=== PATIENT | female | born 1965 | race Hispanic/Latino ===

== ENCOUNTER 2017-04-03 16:22 | Observation (INO) | payer MEDICAID, MEDICARE ==
[2017-04-03 16:37] VITALS: RESP 18
--- NOTE | 2017-04-03 17:08 | C.PDOC ---
History Of Present Illness <LoraRoselyn A - Last Filed: 04/03/17 18:27> <Patito Palmer - Last Filed: 04/03/17 22:18> 51 y/o female presents to ED with multiple complaints including fast heartbeat, dizziness, anxious and suicidal thoughts. At bedside patient is on her cellphone and is not answering questions. No others complaints at this time. ( Roselyn Paulino) History Per: Patient History/Exam Limitations: no limitations Onset/Duration Of Symptoms: Days Current Symptoms Are (Timing): Still Present Suicide/Self Injury Attempted (Context): None Modifying Factor(s): None <Roselyn Paulino - Last Filed: 04/03/17 18:27> <Patito Palmer - Last Filed: 04/03/17 22:18> Time Seen by Provider: 04/03/17 16:46 Chief Complaint (Nursing): Dizziness/Lightheaded Past Medical History Reviewed: Historical Data, Nursing Documentation, Vital Signs - Medical History PMH: Arthritis, Bipolar Disorder Surgical History: No Surg Hx Family History: States: No Known Family Hx - Social History Hx Tobacco Use: No Hx Alcohol Use: No Hx Substance Use: No - Immunization History Hx Tetanus Toxoid Vaccination: No Hx Influenza Vaccination: No Hx Pneumococcal Vaccination: No <LoraRoselyn A - Last Filed: 04/03/17 18:27> Vital Signs: Last Vital Signs Temp 98.1 F 04/03/17 19:15 Pulse 78 04/03/17 19:15 Resp 18 04/03/17 19:15 BP 107/70 04/03/17 19:15 Pulse Ox 99 04/03/17 19:15 - [facility] Procedures OTHER LOCAL DESTRUC SKIN (04/30/02) Review Of Systems Cardiovascular: Positive for: Light Headedness Respiratory: Positive for: Shortness of Breath Psych: Positive for: Anxiety <Roselyn Paulino Last Filed: 04/03/17 18:27> Physical Exam - Physical Exam Appears: Non-toxic, Other (Anxious) Skin: Normal Color, Warm, Dry, No Rash Head: Atraumatic, Normacephalic Eye(s): bilateral: Normal Inspection Oral Mucosa: Moist Neck: Normal ROM, Supple Chest: Symmetrical Cardiovascular: Rhythm Regular, No Murmur Respiratory: Normal Breath Sounds, No Rales, No Rhonchi, No Wheezing Gastrointestinal/Abdominal: Soft, No Tenderness, No Guarding, No Rebound Extremity: Normal ROM, Capillary Refill (<2 seconds) Neurological/Psych: Oriented x3 <Roselyn Paulino - Last Filed: 04/03/17 18:27> ED Course And Treatment - Laboratory Results Result Diagrams: 04/03/17 17:20 04/03/17 17:20 Lab Interpretation: Normal ECG: Interpreted By Sc ECG Rhythm: Sinus Rhythm ECG Interpretation: Normal Rate From EC O2 Sat by Pulse Oximetry: 100 (RA) Pulse Ox Interpretation: Normal Progress Note: Case discussed and patient evaluated by crisis department. on 1: 1 for SI. Patient refused chest X-ray Reassessment Condition: Unchanged <Roselyn Paulino - Last Filed: 04/03/17 18:27> - Laboratory Results Result Diagrams: 04/03/17 17:20 04/03/17 17:20 <Patito Palmer - Last Filed: 04/03/17 22:18> Medical Decision Making <Roselyn Paulino - Last Filed: 04/03/17 18:27> <Patito Palmer - Last Filed: 04/03/17 22:18> Medical Decision Making: Plan: * Patient will be on a 1:1 * Crisis evaluation (Roselyn Paulino) Patient is medically cleared for psychiatric admission. (Patito Palmer) ED OBSERVATION <Roselyn Paulino - Last Filed: 04/03/17 18:27> <Patito Palmer - Last Filed: 04/03/17 22:18> - Observation admission statement Patient is being placed in observation because:: pending crisis (Roselyn Paulino) - Goals of Observation Goals of observation are:: crisis evaluation (Roselyn Paulino) - Progress Note Progress Note: 04/03/17 21:44 Patient remains cooperative in ED. She is refusing CXR stating that she has no respiratory complaints and does not want to be exposed to radiation. She denies any cough, chest pain or shortness of breath or fever. (Patito Palmer) Disposition - Disposition Disposition Time: 19:00 <Roselyn Paulino - Last Filed: 04/03/17 18:27> Discussed With : Bret Acosta Comment: Patient accepted for transfer to [facility] - Disposition Disposition Time: 22:17 <Patito Palmer - Last Filed: 04/03/17 22:18> - Disposition Disposition: Trans to Other Acute Care Hosp Condition: STABLE - Clinical Impression Clinical Impression: Bipolar 1 disorder, Suicidal ideation - PA / [employer]IST[employer] ATTORNEY / Resident Statement MD/DO has reviewed & agrees with the documentation as recorded. - Scribe Statement The provider has reviewed the documentation as recorded by the Scribe <Roselyn Paulino - Last Filed: 04/03/17 18:27> <Patito Palmer - Last Filed: 04/03/17 22:18> - Scribe Statement Phillip Clay All medical record entries made by the Scribe were at my direction and personally dictated by me. I have reviewed the chart and agree that the record accurately reflects my personal performance of the history, physical exam, medical decision making, and the department course for this patient. I have also personally directed, reviewed, and agree with the discharge instructions and disposition. (Roselyn Paulino) Physician Patient Turnover Patient Signed Over To: Patito Palmer Handoff Comments: pending crisis <Roselyn Paulino - Last Filed: 04/03/17 18:27>
[2017-04-03 17:26] LABS: URINE BILIRUBIN NEGATIVE (NEGATIVE); URINE BLOOD NEGATIVE (NEGATIVE); URINE COLOR Yellow (YELLOW); URINE GLUCOSE (UA) NORMAL (Normal); URINE KETONE NEGATIVE (NEGATIVE); URINE LEUKOCYTE ESTERASE NEG Leu/uL (Negative); URINE PROTEIN NEGATIVE (NEGATIVE); URINE UROBILINOGEN NORMAL mg/dL (0.2-1.0); WBC URINE < 1 /hpf (0-5)
[2017-04-03 17:33] LABS: CHLORIDE 103 mmol/L (98-107)
[2017-04-03 17:34] LABS: POTASSIUM 3.9 mmol/L (3.6-5.2); SODIUM 140 mmol/L (132-148)
[2017-04-03 17:35] LABS: GFR AFRICAN-AMERICAN > 60
[2017-04-03 17:36] LABS: ALB/GLOB RATIO 1.2 (1.0-2.1); ALKALINE PHOSPHATASE 83 U/L (38-126); ALT/SGPT 26 U/L (9-52); AST/SGOT 21 U/L (14-36); BASO % 0.4 % (0.0-2.0); BILIRUBIN,TOTAL 0.7 mg/dL (0.2-1.3); BLOOD UREA NITROGEN 9 mg/dL (7-17); CARBON DIOXIDE 25 mmol/L (22-30); EOS % 0.1 % (0.0-4.0); GLUCOSE,RANDOM 91 mg/dL (65-105); HEMATOCRIT 41.8 % (34.0-47.0); LYMPH % 21.4 % (20.0-40.0); MEAN CELL VOLUME 92.6 fL (81.0-99.0); MEAN CORPUSCULAR HEMOGLOBIN 31.7 pg (27.0-31.0); MEAN CORPUSCULAR HGB CONC 34.2 g/dL (33.0-37.0); MONO # 0.6 K/uL (0.0-0.8); MONO % 11.4 % (0.0-10.0); NRBC % 0.1 % (0.0-2.0); RED CELL DISTRIBUTION WIDTH 13.3 % (11.5-14.5); TOTAL PROTEIN 7.8 g/dL (6.3-8.3); WHITE BLOOD COUNT 4.9 K/uL (4.8-10.8)
[2017-04-03 17:37] LABS: ALCOHOL SERUM < 10 mg/dl (0-10); CALCIUM 9.6 mg/dl (8.6-10.4)
[2017-04-03 22:44] VITALS: TEMP 98.5
[2017-04-04 01:54] VITALS: BP 106/68; PULSE 76; O2SAT 97
== END 2017-04-03 22:19 | disposition home or self-care (01) ==
LOC: C.ER 16:22 → C.9OBSV 18:23
PROVIDERS: ADMIT Emergency Medicine; ATTEND Emergency Medicine
DX: F31.9 Bipolar disorder, unspecified (principal); R45.851 Suicidal ideations
CPT/HCPCS: 80053; 81001; 85025; G0378; G0480

== ENCOUNTER 2018-06-07 19:25 | Emergency (ER) | payer MEDICARE ==
[2018-06-07] MEDS ORDERED: Sodium Chloride 0.9% 500 ML IV ONE (20:19)
--- NOTE | 2018-06-07 20:41 | C.PDOC ---
History Of Present Illness 52 year old female with PMH Bipolar disorder not on any medications presents to ED with complaints of feeling body pulsating, having trouble taking deep breaths, numbness and tingling to hands and feet, tired and run down, decreased appetite, and having memory problems. She reports feeling "unconscious like in a dream, and my head is in a fog". She states she has been having many problems this year, has been living with a friend. Over the iday she may have consumed foods that may have contained dairy and wheat, which she has allergy to but does not feel itchy. Denies any drug or alcohol use. Time Seen by Provider: 06/07/18 19:49 Chief Complaint (Nursing): Medical Clearance History Per: Patient History/Exam Limitations: no limitations Onset/Duration Of Symptoms: Days Past Medical History Reviewed: Historical Data, Nursing Documentation, Vital Signs Vital Signs: Last Vital Signs Temp 98.3 F 06/07/18 19:27 Pulse 96 H 06/07/18 19:27 Resp 20 06/07/18 19:27 BP 109/72 06/07/18 19:27 Pulse Ox 100 06/07/18 19:27 - Medical History PMH: Arthritis, Bipolar Disorder - [facility] Procedures GROUP PSYCHOTHERAPY (04/04/17) INDIVIDUAL PSYCHOTHERAPY, BEHAVIORAL (04/04/17) OTHER LOCAL DESTRUC SKIN (04/30/02) Family History: States: Unknown Family Hx - Social History Hx Tobacco Use: No Hx Alcohol Use: Yes (occassional) Hx Substance Use: No - Immunization History Hx Tetanus Toxoid Vaccination: No Hx Influenza Vaccination: No Hx Pneumococcal Vaccination: No Review Of Systems Constitutional: Positive for: Malaise. Negative for: Fever Eyes: Negative for: Vision Change Cardiovascular: Positive for: Palpitations. Negative for: Chest Pain Respiratory: Negative for: Cough, Shortness of Breath Gastrointestinal: Negative for: Vomiting, Abdominal Pain Neurological: Positive for: Numbness. Negative for: Headache, Dizziness Psych: Negative for: Suicidal ideation, Withdrawal Physical Exam - Physical Exam Appears: Non-toxic, No Acute Distress, Unkempt Skin: Warm, Dry, No Diaphoretic, No Pale Head: Atraumatic, Normacephalic Eye(s): bilateral: Normal Inspection, EOMI Nose: Normal Oral Mucosa: Moist Neck: Normal ROM Chest: Symmetrical Cardiovascular: Rhythm Regular, No Murmur Respiratory: Normal Breath Sounds, No Wheezing Extremity: Left: Other (writing on forearm, notes and reminders), Bilateral: Atraumatic, Normal ROM Neurological/Psych: Oriented x3, Normal Speech, Other (cooperative then reluctant, loose thoughts, mildly agitated, blunted affect) ED Course And Treatment - Laboratory Results Result Diagrams: 06/07/18 21:21 06/07/18 21:21 O2 Sat by Pulse Oximetry: 100 Medical Decision Making Medical Decision Making: Impression: multiple somatic complains, h.o bipolar d.o Plan: * Labs * IV NS * Crisis eval Progress: Labs reviewed shows hypokalemia and given oral KCL. Patient given IV fluids and observed in ED. 0026 PES evaluated patient and cleared patient for discharge. Patient does not want inpatient care nor qualifies for admission, she poses no danger to self or others Patient stable for discharge Disposition Counseled Patient/Family Regarding: Diagnosis, Need For Followup, Rx Given - Disposition Referrals: [facility] [Outside] [facility] [Outside] Disposition: HOME/ ROUTINE Disposition Time: 00:28 Condition: STABLE Additional Instructions: Please follow up in the clinic and at [facility] for further care Instructions: Paresthesias (DC) Forms: [facility] (Bahamian) - POA Present On Arrival: None - Clinical Impression Clinical Impression: Paresthesia, Bipolar disorder
[2018-06-07 21:25] LABS: BASO % 0.3 % (0.0-2.0); HEMOGLOBIN 13.7 g/dL (11.0-16.0); LYMPH % 9.7 % (20.0-40.0); MEAN CORPUSCULAR HEMOGLOBIN 31.8 pg (27.0-31.0); MEAN CORPUSCULAR HGB CONC 33.8 g/dL (33.0-37.0); MEAN PLATELET VOLUME 7.5 fL (7.2-11.7); MONO # 0.9 K/uL (0.0-0.8); MONO % 8.4 % (0.0-10.0); NEUT # 8.5 K/uL (1.8-7.0); NEUT % 81.6 % (50.0-75.0); PLATELET COUNT 283 K/uL (130-400); RBC 4.31 Mil/uL (3.80-5.20); RED CELL DISTRIBUTION WIDTH 13.6 % (11.5-14.5); WHITE BLOOD COUNT 10.4 K/uL (4.8-10.8)
[2018-06-07] MEDS ORDERED: Sodium Chloride 0.9% 1,000 ML ONE (21:25)
[2018-06-07 21:39] LABS: ALB/GLOB RATIO 1.3 (1.0-2.1); ALBUMIN 4.1 g/dL (3.5-5.0); ALT/SGPT 18 U/L (9-52); AST/SGOT 20 U/L (14-36); BLOOD UREA NITROGEN 15 mg/dL (7-17); GFR NON-AFRICAN AMERICAN > 60
[2018-06-07 21:43] LABS: LYMPHOCYTE 11 % (20-40); MONOCYTE 4 % (0-10); NEUTROPHIL 85 % (50-75); PLATELET ESTIMATE NORMAL (NORMAL); TOTAL CELLS COUNTED 100
[2018-06-07] MEDS ORDERED: Potassium Chloride 20 mEq ER Tab PO STA (21:48)
[2018-06-07] MEDS ORDERED: Potassium Chloride 20 mEq ER Tab PO ONE (22:00)
[2018-06-07 23:33] LABS: HCG,QUALITATIVE URINE NEGATIVE (NEGATIVE)
[2018-06-07 23:38] LABS: SQUAMOUS EPITHIAL < 1 /hpf (0-5); URINE BILIRUBIN NEGATIVE (NEGATIVE); URINE BLOOD 1+ (NEGATIVE); URINE CLARITY Clear (Clear); URINE COLOR Yellow (YELLOW); URINE GLUCOSE (UA) NORMAL (Normal); URINE LEUKOCYTE ESTERASE NEG Leu/uL (Negative); URINE PROTEIN NEGATIVE (NEGATIVE); URINE UROBILINOGEN NORMAL mg/dL (0.2-1.0)
[2018-06-07 23:51] LABS: BARBITURATES, UR NEGATIVE (NEGATIVE); BENZODIAZEPINES, UR NEGATIVE (NEGATIVE); OPIATES, UR NEGATIVE (NEGATIVE); PHENCYCLIDINE, UR NEGATIVE (NEGATIVE)
[2018-06-08 00:04] VITALS: BP 110/69; PULSE 72; RESP 18; TEMP 98.5
[2018-06-08 00:29] VITALS: O2SAT 100
--- NOTE | 2018-06-09 20:54 | CARD ---
APPROVED REPORT Date of service: 06/07/2018 EKG Measurement Heart [id number] <Conclusion> Normal sinus rhythm Possible Left atrial enlargement Borderline ECG
== END 2018-06-08 01:00 | disposition home or self-care (01) ==
LOC: C.ER 19:25
DX: R20.2 Paresthesia of skin (principal); F31.9 Bipolar disorder, unspecified
CPT/HCPCS: 80053; 81001; 83735; 84100; 84703; 85025; 93005; 96360; 99283; G0480; J7040

== ENCOUNTER 2018-09-03 21:52 | Inpatient (IN) | payer MEDICARE ==
--- NOTE | 2018-09-03 22:19 | C.PDOC ---
History Of Present Illness Patient presents to the ER crying, screaming, depressed. No particular plan but she went standing in the middle of the street hoping to be hit by a car. Denies physical complaints at this time. Time Seen by Provider: 09/03/18 22:18 Chief Complaint (Nursing): Psychiatric Evaluation History Per: Patient History/Exam Limitations: no limitations Onset/Duration Of Symptoms: Hrs Current Symptoms Are (Timing): Still Present Suicide/Self Injury Attempted (Context): None Modifying Factor(s): None Severity: None Pain Scale Rating Of: 0 Associated Symptoms: Depression Involuntary Hold By: None Recent travel outside of the [place]: No Additional History Per: Patient, EMS Past Medical History Reviewed: Historical Data, Nursing Documentation, Vital Signs Vital Signs: Last Vital Signs Temp 97.4 F L 09/03/18 21:57 Pulse 69 09/03/18 21:57 Resp 20 09/03/18 21:57 BP 111/71 09/03/18 21:57 Pulse Ox 100 09/03/18 21:57 - Medical History PMH: Arthritis, Bipolar Disorder Denies: Diabetes, Hepatitis, HIV, HTN, Chronic Kidney Disease, Seizures, Sexually Transmitted Disease - [facility] Procedures GROUP PSYCHOTHERAPY (04/04/17) INDIVIDUAL PSYCHOTHERAPY, BEHAVIORAL (04/04/17) OTHER LOCAL DESTRUC SKIN (04/30/02) Family History: States: No Known Family Hx - Social History Hx Tobacco Use: No Hx Alcohol Use: Yes (occassional) Hx Substance Use: No - Immunization History Hx Tetanus Toxoid Vaccination: No Hx Influenza Vaccination: No Hx Pneumococcal Vaccination: No Review Of Systems Constitutional: Negative for: Fever, Chills Cardiovascular: Negative for: Chest Pain, Palpitations Respiratory: Negative for: Cough, Shortness of Breath Gastrointestinal: Negative for: Nausea, Vomiting Musculoskeletal: Negative for: Back Pain Neurological: Negative for: Weakness, Numbness Psych: Positive for: Depression Physical Exam - Physical Exam Appears: Non-toxic Skin: Warm, Dry Head: Normacephalic Oral Mucosa: Moist Chest: Symmetrical, No Tenderness Cardiovascular: Rhythm Regular Respiratory: No Rales, No Rhonchi, No Wheezing Gastrointestinal/Abdominal: Soft, No Tenderness Back: Normal Inspection Extremity: Normal ROM (x4) Extremity: Bilateral: Atraumatic Neurological/Psych: Oriented x3 Gait: Steady ED Course And Treatment - Laboratory Results Result Diagrams: 09/03/18 22:28 02/20/19 22:28 O2 Sat by Pulse Oximetry: 100 (Room air) Pulse Ox Interpretation: Normal Progress Note: Blood work and urinalysis ordered. Crisis notified. Disposition Discussed With Dr.: Gregory Hidalgo Comment: accepted the pt on his service and took over the care at 12:49AM Doctor Will See Patient In The: Hospital Counseled Patient/Family Regarding: Studies Performed, Diagnosis - Disposition Disposition: HOSPITALIZED Disposition Time: 22:19 Condition: FAIR Forms: [facility] (Marshallese) - POA Present On Arrival: None - Clinical Impression Clinical Impression: Schizophrenia - Scribe Statement The provider has reviewed the documentation as recorded by the Scribe Mansoor Tavares All medical record entries made by the Scribe were at my direction and personmorelia jacobo dictated by me. I have reviewed the chart and agree that the record accurately reflects my personal performance of the history, physical exam, medical decision making, and the department course for this patient. I have also personally directed, reviewed, and agree with the discharge instructions and disposition. Decision To Admit - Pt Status Changed To: Hospital Disposition Of: Inpatient - Admit Certification Admit to Inpatient:: After my assessment, the patient will require hospitalization for at least two midnights. This is because of the severity of symptoms shown, intensity of services needed, and/or the medical risk in this patient being treated as an outpatient. - InPatient: Physician Admission Certification: I certify that this patient requires 2 or more midnights of care for the following reason:: After my assessment, the patient will require hospitalization for at least two midnights. This is because of the severity of symptoms shown, intensity of services needed, and/or the medical risk in this patient being treated as an outpatient. - . Bed Request Type: Psychiatry Admitting Physician: Gregory Hidalgo Patient Diagnosis: Schizophrenia
[2018-09-03 22:31] LABS: BASO % 0.5 % (0.0-2.0); EOS % 0.2 % (0.0-4.0); HEMOGLOBIN 13.2 g/dL (11.0-16.0); LYMPH # 1.5 K/uL (1.0-4.3); LYMPH % 30.4 % (20.0-40.0); MEAN CELL VOLUME 93.8 fL (81.0-99.0); MEAN CORPUSCULAR HEMOGLOBIN 31.5 pg (27.0-31.0); MEAN CORPUSCULAR HGB CONC 33.6 g/dL (33.0-37.0); MEAN PLATELET VOLUME 7.5 fL (7.2-11.7); MONO # 0.7 K/uL (0.0-0.8); MONO % 14.6 % (0.0-10.0); NEUT # 2.6 K/uL (1.8-7.0); NEUT % 54.3 % (50.0-75.0); NRBC % 0.1 % (0.0-2.0); RBC 4.19 Mil/uL (3.80-5.20); RED CELL DISTRIBUTION WIDTH 13.1 % (11.5-14.5)
[2018-09-03 22:32] LABS: WHITE BLOOD COUNT 4.8 K/uL (4.8-10.8)
[2018-09-03 22:37] LABS: HCG,QUALITATIVE URINE NEGATIVE (NEGATIVE); SQUAMOUS EPITHIAL < 1 /hpf (0-5); URINE AMORPHOUS SEDIMENT FEW /ul (<OCC); URINE BACTERIA FEW (<OCC); URINE BILIRUBIN NEGATIVE (NEGATIVE); URINE BLOOD NEGATIVE (NEGATIVE); URINE CLARITY Hazy (Clear); URINE COLOR Yellow (YELLOW); URINE GLUCOSE (UA) NORMAL (Normal); URINE LEUKOCYTE ESTERASE NEG Leu/uL (Negative); URINE PROTEIN NEGATIVE (NEGATIVE); URINE UROBILINOGEN NORMAL mg/dL (0.2-1.0)
[2018-09-03 22:44] LABS: ALB/GLOB RATIO 1.4 (1.0-2.1); ALBUMIN 4.4 g/dL (3.5-5.0); ALT/SGPT 14 U/L (9-52); AST/SGOT 21 U/L (14-36); BLOOD UREA NITROGEN 11 mg/dL (7-17); CALCIUM 9.3 mg/dl (8.6-10.4); GFR NON-AFRICAN AMERICAN > 60
[2018-09-03 22:52] LABS: BARBITURATES, UR NEGATIVE (NEGATIVE); BENZODIAZEPINES, UR NEGATIVE (NEGATIVE); OPIATES, UR NEGATIVE (NEGATIVE); PHENCYCLIDINE, UR NEGATIVE (NEGATIVE)
--- NOTE | 2018-09-04 02:46 | PCM.BM ---
<Zaida Roy - Last Filed: 09/04/18 02:43> Treatment Plan Problems - Problems identified on initial assessmt Anxiety Date Initiated: 09/04/18 Time Initiated: Assessment reference: NA Status: Active Suicidal Ideation Date Initiated: 09/04/18 Time Initiated: Assessment reference: NA Status: Monitor Ineffective Coping Date Initiated: 09/04/18 Time Initiated: : Assessment reference: NA Status: Active Treatment assets and liabiliti Patient Assests: cooperative, educated, insightful, self-reliant, ADL independent, physically healthy, negotiates basic needs, good past tx response, good interpersonal skills Patient Liabilities: live alone, other (Poor coping skills) - Milieu Protocol Maintain good personal hygiene: daily Encourage regular showers, daily Remind patient to perform daily oral care, every shift Assist patient to perform ADL's Conduct patient checks and document Observation sheet: Q15 minutes Maintain personal safety: every shift Educate patient to report safety concerns to staff, every shift Monitor environment for contraband/sharps Medication safety: Monitor for expected outcome, potential side effects: every shift, Assess barriers to learning: every shift, Assess readiness for medication education: every shift <Arnaldo Ortega - Last Filed: 09/05/18 11:19> - Diagnosis (1) Schizophrenia Status: Acute Interventions: 09/05/18 11:19 * Assess/adjust medications daily and /or as needed * See patient on an individual basis 7x/week to assess status of hallucinations * Discuss risks, benefits, side effects and alternatives of medications * <Vania Richard - Last Filed: 09/05/18 14:14> Family Contact Family involvement: Patient does not wish Family/SO involvement Family contact: Patient declines to allow family contact at present - Goals for Treatment Patient goals for treatment: "I want to go to [facility]." Discharge/Continuing Care - Education Needs Education Needs: Patient Medication, Patient Diagnosis/Disease Process, Patient Coping Skills, Patient Placement options, Patient Community resources - Discharge Discharge Criteria: Free of Suicidal thoughts, Free of paranoid thoughts, Free of agitation, Ability to care for self, Reduction of target symptoms Discharge to:: Home - Treatment Team Participation Discussed with Family/SO: No Was Patient/Family/SO present at Treatment Team Meeting: Yes
--- NOTE | 2018-09-04 09:45 | PCM.PSYCH ---
Initial Psychiatric Evaluation - Initial Psychiatric Evaluation Type of Admission: Voluntary Legal Status: Capacity Chief Complaint (in patient's own words): My landlord is driving me to suicide History of Present Illness and Precipitating Events: Patient is a 51 year old female that lives my herself, has no children, and receives SSI. Patient came to [facility] after tried to kill herself by jumping in front of car. Patient appears disorganized and internally preoccupied. He states that she is having issues with her landlord who she claims is trying to kick her out of her apartment so that he can turn the place into condos. She states that this conflict with him is driving me to suicide. She denies any psychiatric illness but reports just being discharged from [facility] inpatient psychiatric [facility] 06/21/18. She states that she does not take any medication and does not believe she has a psychiatric problem. Patient was seen at [facility] about 2 years ago and given medications that she states she could not afford the copay for when she was discharged. Upon further discussion about medications patient gets agitated states, "why are we talking about that? I'm only here because the fear of being homeless is making me want it to be over. Patient states that her lead level designer told her to come in to the hospital when she was screaming and crying in his office while discussing her landlord situation. She complains of poor sleep because of the 5G air waves that [employer] are working on. Patient states that shes had suicide ideation before but never with a plan. Patient denies any tobacco, alcohol, and illicit drug use. Patient denies auditory and visual hallucinations, depressed mood, and paranoia. Past psych history: h/o multiple admission for psychotic symptoms. Family psych history: unknown Medical history: thyroid issue, arthritis, Celiac Disease Medications: denies Current Medications: Active Medications Generic Name Dose Route Start Last Admin Trade Name Freq PRN Reason Stop Dose Admin Influenza Virus Vaccine 60 mcg 09/07/18 10:00 Flucelvax Quad [id number] Syr IM 09/07/18 10:01 .ONCE ONE Pneumococcal Polyvalent Vaccine 0.5 ml 09/07/18 10:00 Pneumovax 23 Vaccine IM 09/07/18 10:01 .ONCE ONE Past Psychiatric History - Past Psychiatric History Previous Treatment History: Inpatient Pertinent Medical Hx (Current Medical&Sleep Prob, Allergies): Allergies Allergy/AdvReac Type Severity Reaction Status Date / Time milk Allergy Mild upset Verified 09/03/18 22:03 stomach wheat Allergy Mild upset Verified 09/03/18 22:03 stomach antihistamines Allergy RASH Uncoded 09/03/18 22:03 No Known Home Med 04/03/17 Review of Systems - Review of Systems All systems: reviewed and no additional remarkable complaints except - Psychiatric Psychiatric: Anxiety, Auditory Hallucinations, Irritability, Mood Swings, Suicidal Ideation Mental Status Examination - Personal Presentation Personal Presentation: Looks stated age - Affect Affect: Broad - Motor Activity Motor Activity: Psychomotor Agitation - Reliability in Providing Information Reliability in Providing Information: Poor, due to alteration in thoughts, Poor, due to altered mood - Speech Speech: Disorganized - Formal Thought Process Formal Thought Process: Delusions, Paranoia, Loosening of associations, Flight of ideas - Hallucinations/Delusions Hallucinations: Visual, Auditory Delusions: Persecution - Obsessions/Compulsions Obsessions: No Compulsions: No - Cognitive Functions Orientation: Person, Place, Situation, Time Sensorium: Alert Attention/Concentration: Attentive Abstract Thinking: [place] Estimate of Intelligence: Below average Judgement: Imparied, as evidence by: Poor judgement, Imparied, as evidence by: Lack of insight into illness - Risk Risk: Suicidal, Diminished functioning - Limitations Limitations: Living alone DSM 5 DX - DSM 5 DSM 5 Diagnosis: Schizoaffective disorder bipolar type - Recommended/Plan of Treatment Treatment Recommendations and Plan of Treatment: Schizoaffective disorder bipolar type -CBT -Psychoeducation -Supportive therapy and group therapy -Seroquel for psychosis -Trileptal for mood -Trazodone for insomnia -Hydroxyzine for anxiety
--- NOTE | 2018-09-05 11:19 | PCM.PYCHPN ---
Psychiatric Progress Note - Psychiatric Progress Note Patient seen today, length of contact: 18 min Patient Chief Complaint: My landlord is driving me to suicide Problems Identified/Issues Discussed: Patient seen and evaluated, chart reviewed and discussed with the staff. Patient remained hypomanic, talkative and bizarre. She still appears disorganized and internally preoccupied. She is still talking a lot and her thought processes circumstantial and tangential with loose associations. She denies any auditory or visual hallucinations. However she is very delusional about the idea of the reincarnation. She remained suicidal, and mentioned that she jumped in front of the car because she believed in the reincarnation. She is refusing medications. Supportive therapy was given Medication Change: Yes Medical Record Reviewed: Yes Mental Status Examination - Cognitive Function Orientation: Person, Place, Situation, Time Memory: Intact Attention: Poor Concentration: Poor Association: Loose Fund of Knowledge: Poor - Mood Mood: Euphoric - Affect Affect: Broad - Speech Speech: Pressured - Formal Thought Process Formal Thought Process: Delusions, Paranoia, Loosening of associations, Flight of ideas - Suicidal Ideation Suicidal Ideation: No - Homicidal Ideation Homicidal Ideation: No Goal/Treatment Plan - Goal/Treatment Plan Need for Continued Stay: Remain at risks for inpatient hospitalization Progress Toward Problem(s) and Goals/Treatment Plan: Schizoaffective disorder bipolar type -CBT -Psychoeducation -Supportive therapy and group therapy -Seroquel for psychosis -DC Trileptal for mood -Depakote for mood -Trazodone for insomnia -Hydroxyzine for anxiety -Prolixin for psychosis - Smoking Cessation Smoking Cessation Initiated: No
[2018-09-05] MEDS: Divalproex 250 mg DR Tab PO SCH ×2 (11:53→17:18)
[2018-09-06] MEDS: Divalproex 250 mg DR Tab PO SCH ×2 (09:37→17:31)
[2018-09-07] MEDS: Divalproex 250 mg DR Tab PO SCH ×2 (09:28→17:13)
[2018-09-07] MEDS ORDERED: Pneumococcal 23-Valent Vaccine IM ONE (10:00)
[2018-09-07] MEDS ORDERED: Influenza Vaccine 60 mcg/0.5 mL SYR (4YR UP) IM ONE (10:00)
[2018-09-08] MEDS: Divalproex 250 mg DR Tab PO SCH ×2 (09:17→17:19)
[2018-09-09] MEDS: Divalproex 250 mg DR Tab PO SCH (09:53)
--- NOTE | 2018-09-09 13:57 | PCM.PYCHPN ---
Psychiatric Progress Note - Psychiatric Progress Note Patient seen today, length of contact: 18 min Patient Chief Complaint: I want to reincarnate. Problems Identified/Issues Discussed: Patient seen and evaluated, chart reviewed and discussed with the staff. Patient remained hypomanic, talkative and bizarre. She still appears disorganized and internally preoccupied. She is still talking a lot and her thought processes circumstantial and tangential with loose associations. She denies any auditory or visual hallucinations. However she is very delusional about the idea of the reincarnation. She remained suicidal, and mentioned that she jumped in front of the car because she believed in the reincarnation. She is refusing medications. Supportive therapy was given Medication Change: Yes Medical Record Reviewed: Yes Mental Status Examination - Cognitive Function Orientation: Person, Place, Situation, Time Memory: Intact Attention: Poor Concentration: Poor Association: Loose Fund of Knowledge: Poor - Mood Mood: Euphoric - Affect Affect: Broad - Speech Speech: Pressured - Formal Thought Process Formal Thought Process: Delusions, Paranoia, Loosening of associations, Flight of ideas - Suicidal Ideation Suicidal Ideation: No - Homicidal Ideation Homicidal Ideation: No Goal/Treatment Plan - Goal/Treatment Plan Need for Continued Stay: Remain at risks for inpatient hospitalization Progress Toward Problem(s) and Goals/Treatment Plan: Schizoaffective disorder bipolar type -CBT -Psychoeducation -Supportive therapy and group therapy -Seroquel for psychosis -DC Trileptal for mood -Depakote for mood -Trazodone for insomnia -Hydroxyzine for anxiety -Prolixin for psychosis
[2018-09-09] MEDS: Divalproex 500 mg DR Tab PO SCH (18:29)
[2018-09-10] MEDS: Divalproex 500 mg DR Tab PO SCH ×2 (09:33→17:22)
[2018-09-11] MEDS: Divalproex 500 mg DR Tab PO SCH ×2 (10:21→17:08)
[2018-09-12] MEDS: Divalproex 500 mg DR Tab PO SCH ×2 (10:00→17:35)
--- NOTE | 2018-09-12 12:06 | PCM.BM ---
<AyseVeronica - Last Filed: 09/12/18 12:06> Treatment Plan Problems - Problems identified on initial assessmt Anxiety Date Initiated: 09/04/18 Time Initiated: Assessment reference: NA Status: Active Suicidal Ideation Date Initiated: 09/04/18 Time Initiated: Assessment reference: NA Status: Monitor Ineffective Coping Date Initiated: 09/04/18 Time Initiated: Assessment reference: NA Status: Active Treatment assets and liabiliti Patient Assests: cooperative, educated, insightful, self-reliant, ADL independent, physically healthy, negotiates basic needs, good past tx response, good interpersonal skills Patient Liabilities: live alone, other (Poor coping skills) - Milieu Protocol Maintain good personal hygiene: daily Encourage regular showers, daily Remind patient to perform daily oral care, every shift Assist patient to perform ADL's Conduct patient checks and document Observation sheet: Q15 minutes Maintain personal safety: every shift Educate patient to report safety concerns to staff, every shift Monitor environment for contraband/sharps Medication safety: Monitor for expected outcome, potential side effects: every shift, Assess barriers to learning: every shift, Assess readiness for medication education: every shift Milieu Narrative: Schizoaffective disorder bipolar type -CBT -Psychoeducation -Supportive therapy and group therapy -Seroquel for psychosis -DC Trileptal for mood -Depakote for mood -Trazodone for insomnia -Hydroxyzine for anxiety -Prolixin for psychosis Family Contact Family involvement: Patient does not wish Family/SO involvement Family contact: Patient declines to allow family contact at present - Goals for Treatment Patient goals for treatment: "I want to go to [facility]." Discharge/Continuing Care - Education Needs Education Needs: Patient Medication, Patient Diagnosis/Disease Process, Patient Coping Skills, Patient Placement options, Patient Community resources - Discharge Discharge Criteria: Free of Suicidal thoughts, Free of paranoid thoughts, Free of agitation, Ability to care for self, Reduction of target symptoms Discharge to:: Home - Treatment Team Participation Patient/Family/SO Statement: Schizoaffective disorder bipolar type -CBT -Psychoeducation -Supportive therapy and group therapy -Seroquel for psychosis -DC Trileptal for mood -Depakote for mood -Trazodone for insomnia -Hydroxyzine for anxiety -Prolixin for psychosis Discussed with Family/SO: No Was Patient/Family/SO present at Treatment Team Meeting: Yes Treatment Plan Review - Problem Anxiety Time Initiated: : Suicidal Ideation Time Initiated: : Ineffective Coping Time Initiated: :25 - Discharge / Continuing Care Discharge to:: Home Behavioral Health Services: Outpatient therapy Health Needs: Medications/Rx <Arnaldo Ortega - Last Filed: 09/13/18 01:31> - Diagnosis (1) Schizophrenia Status: Acute Interventions: 09/13/18 01:31 * Assess/adjust medications daily and /or as needed * See patient on an individual basis 7x/week to assess status of hallucinations * Discuss risks, benefits, side effects and alternatives of medications *
[2018-09-13] MEDS: Divalproex 500 mg DR Tab PO SCH ×2 (10:17→17:09)
--- NOTE | 2018-09-13 23:02 | PCM.PYCHPN ---
Psychiatric Progress Note - Psychiatric Progress Note Patient seen today, length of contact: 15 minutes Patient Chief Complaint: I am okay. Problems Identified/Issues Discussed: Patient seen, chart reviewed, case discussed with the staff. Issues related to illness and treatment were discussed with the patient and staff. Reported compliant with treatment with no adverse effects. Tolerating treatment very well. Mood reported as okay. Affect appropriate. Patient reported feeling better except tiredness. Staff reported patient is compliant with treatment except Neurontin which patient does not want to take. Issues discussed with the patient. As patient is on Depakote, patient does not want to take Neurontin. Aftercare discussed with the patient. Patient denied any delusions, auditory or visual hallucinations, no suicidal ideations or homicidal ideations at the time of evaluation Medical Problems: Arthritis Celiac disease Diagnostic Results: Reviewed DSM 5 Symptoms Update: Some improvement with treatment. Medication Change: No Medical Record Reviewed: Yes Mental Status Examination - Cognitive Function Orientation: Person, Place, Situation, Time Memory: Intact Attention: WNL Concentration: WNL Association: WNL Fund of Knowledge: [facility] Decription of patient's judgement and insights: Fair - Mood Mood: Depressed - Affect Affect: Depressed - Speech Speech: Appropriate - Formal Thought Process Formal Thought Process: No Impairment Psychotic Thoughts and Behaviors: None - Suicidal Ideation Suicidal Ideation: No - Homicidal Ideation Homicidal Ideation: No Goal/Treatment Plan - Goal/Treatment Plan Need for Continued Stay: Remain at risks for inpatient hospitalization, Discharge may exacerbated symptoms, Severe functional impairment Progress Toward Problem(s) and Goals/Treatment Plan: Patient education. Supportive therapy. Continue treatment as before except Neurontin. Estimated Date of D/C: 09/15/18 - Smoking Cessation Smoking Cessation Initiated: No
[2018-09-14] MEDS: Divalproex 500 mg DR Tab PO SCH ×2 (09:36→17:26)
[2018-09-15 06:36] VITALS: BP 93/50; PULSE 79; RESP 20; TEMP 98.6; O2SAT 96
[2018-09-15] MEDS: Divalproex 500 mg DR Tab PO SCH (09:57)
--- NOTE | 2018-09-15 10:21 | PCM.PYCHDC ---
Mental Status Examination - Mental Status Examination Orientation: Person, Place, Situation, Time Memory: Intact Mood: Neutral Affect: Constricted Speech: Soft Attention: WNL Concentration: WNL Association: WNL Fund of Knowledge: WNL Formal Thought Process: No Impairment Description of patient's judgement and insight: good, fair Psychotic Thoughts and Behaviors: denies any AVH Suicidal Ideation: No Current Homicidal Ideation?: No Discharge Summary - Discharge Note Reason for Hospitalization: Patient is a 51 year old female that lives my herself, has no children, and receives SSI. Patient came to [facility] after tried to kill herself by jumping in front of car. Patient appears disorganized and internally preoccupied. He states that she is having issues with her landlord who she claims is trying to kick her out of her apartment so that he can turn the place into condos. She states that this confl ict with him is driving me to suicide. She denies any psychiatric illness but reports just being discharged from [facility] 06/21/18. She states that she does not take any medication and does not believe she has a psychiatric problem. Patient was seen at [facility] about 2 years ago and given medications that she states she could not afford the copay for when she was discharged. Upon further discussion about medications patient gets agitated states, "why are we talking about that? I'm only here because the fear of being homeless is making me want it to be over. Patient states that her acid tender told her to come in to the hospital when she was screaming and crying in his office while discussing her landlord situation. She complains of poor sleep because of the 5G air waves that companies are working on. Patient states that shes had suicide ideation before but never with a plan. Patient denies any tobacco, alcohol, and illicit drug use. Patient denies auditory and visual hallucinations, depressed mood, and paranoia. Consultations:: List each consultation separately and include: 1. Reason for request. 2. Findings. 3. Follow-up Summary of Hospital Course include:: 1. Description of specific treatment plan utilized for patients during their course of treatmen. 2. Summarize the time- course for resolution of acute symptoms and/or regressed behaviors. 3. Describe issues identified and worked on during hospitalization. 4. Describe medication utilized. 5. Describe medical problems identified and treated. 6. Reassessment of suicide risk Summary of Hospital Course: Patient is a 51 year old female that lives my herself, has no children, and receives SSI. Patient came to [facility] after tried to kill herself by jumping in front of car. Patient appears disorganized and internally preoccupied. He states that she is having issues with her landlord who she claims is trying to kick her out of her apartment so that he can turn the place into condos. She states that this conflict with him is driving me to suicide. She denies any psychiatric illness but reports just being discharged from [facility] inpatient psychiatric [facility] 06/21/18. She states that she does not take any medication and does not believe she has a psychiatric problem. Patient was seen at [facility] about 2 years ago and given medications that she states she could not afford the copay for when she was discharged. Upon further discussion about medications patient gets agitated states, "why are we talking about that? I'm only here because the fear of being homeless is making me want it to be over. Patient states that her acid tender told her to come in to the hospital when she was screaming and crying in his office while discussing her landlord situation. She complains of poor sleep because of the 5G air waves that [employer] are working on. Patient states that shes had suicide ideation before but never with a plan. Patient denies any tobacco, alcohol, and illicit drug use. Patient denies auditory and visual hallucinations, depressed mood, and paranoia. Past psych history: h/o multiple admission for psychotic symptoms. Family psych history: unknown Medical history: thyroid issue, arthritis, Celiac Disease Medications: denies - Diagnosis (1) Schizophrenia Current Visit: Yes Status: Acute - Final Diagnosis (DSM 5) Condition upon Discharge: FAIR DSM 5: Schizoaffective disorder bipolar type Disposition: HOME/ ROUTINE Follow-up Treatment Plan: Schizoaffective disorder bipolar type -CBT -Psychoeducation -Supportive therapy and group therapy -Seroquel for psychosis -DC Trileptal for mood -Depakote for mood -Trazodone for insomnia -Hydroxyzine for anxiety -Prolixin for psychosis Prescriptions/Medication Reconciliation: Benztropine [Cogentin] 1 mg PO BID #60 tab Divalproex [Depakote DR] 500 mg PO BID #60 tcp fluPHENAZine [Prolixin] 10 mg PO BID #60 tab Gabapentin [Neurontin] 300 mg PO BID #60 cap - Smoking Cessation Smoking Cessation Medication prescribed: No - Antipsychotic Medications Pt discharged on 2 or more routine antipsychotic medications: No
== END 2018-09-15 10:30 | disposition home or self-care (01) | DRG 885 ==
LOC: C.ER 21:52 → C.5E 09-04 00:48
PROC: GZHZZZZ Group Psychotherapy (ICD-10-PCS; principal; 2018-09-04)
PROC: GZ58ZZZ Individual Psychotherapy, Cognitive-Behavioral (ICD-10-PCS; 2018-09-04)
PROC: GZ56ZZZ Individual Psychotherapy, Supportive (ICD-10-PCS; 2018-09-04)
DX: F25.0 Schizoaffective disorder, bipolar type (principal); R45.851 Suicidal ideations; K90.0 Celiac disease; F41.9 Anxiety disorder, unspecified; G47.00 Insomnia, unspecified